=== PATIENT | female | born 1950 | race Two or more races ===

== ENCOUNTER 2023-06-16 08:45 | Inpatient (IN) | payer OTHER ==
[~2023-06-16] VITALS: Ht 152.4 cm; Wt 63.0 kg
[2023-06-16] MEDS ORDERED: VALSARTAN160 MG PO (12:16)
[2023-06-16] MEDS ORDERED: TOPROL XL50 M1 PO (12:16)
[2023-06-16] MEDS ORDERED: ROSUVASTATIN CA20 MG PO (12:17)
[2023-06-16] MEDS ORDERED: FOLIC ACID20 MG PO (12:17)
[2023-06-16] MEDS ORDERED: PLAVIX75 MG PO (12:17)
[2023-06-16] MEDS ORDERED: ZETIA10 MG PO (12:17)
[2023-06-16] MEDS ORDERED: PLAQUENIL PO (12:18)
[2023-06-22] MEDS ORDERED: CILOSTAZOL100 MG (10:29)
[2023-06-22] MEDS ORDERED: RISEDRONATE SO150 MG (10:29)
[2023-06-22] MEDS ORDERED: RESTORIL30 MG (10:29)
[2023-06-22] MEDS ORDERED: MELOXICAM15 MG (10:29)
[2023-06-22] MEDS ORDERED: METRONIDAZOLE/SODIUM CHLORIDE 500 MG/100 ML PIGGYBACK IV ONE ×4 (10:42→18:31)
[2023-06-22] MEDS ORDERED: CEFTRIAXONE SODIUM 2,000 MG VIAL ONE ×2 (10:42→12:18)
[2023-06-22] MEDS ORDERED: BUPIVACAINE HCL/PF 0.5% 30ML ML ONE (12:18)
[2023-06-22] MEDS ORDERED: LIDOCAINE HCL/EPINEPHRINE 20 ML VIAL IJ ONE ×2 (12:18→14:30)
[2023-06-22] MEDS ORDERED: CEFTRIAXONE SODIUM 2,000 MG VIAL IV ONE (14:30)
[2023-06-22] MEDS ORDERED: BUPIVACAINE HCL/PF 0.5% 5MG/ML VIAL IJ ONE (14:30)
[2023-06-22] MEDS ORDERED: DEXTROSE 50 % IN WATER 0.5 G/ML DISP.SYRIN IV PRN (16:00)
[2023-06-22] MEDS ORDERED: 0.9 % SODIUM CHLORIDE 1,000 ML IV SCH (16:00)
[2023-06-22] MEDS ORDERED: MORPHINE SULFATE 4 MG/ML CARTRIDGE IV PRN (16:00)
[2023-06-22] MEDS ORDERED: INSULIN LISPRO 1,000 UNIT/10 ML UNITS SUBCUTANEO SCH (16:00)
[2023-06-22] MEDS ORDERED: OxyCODONE HCL 5 MG TABLET (ROXICODONE) PO PRN (16:00)
[2023-06-22] MEDS ORDERED: ONDANSETRON HCL 2 MG/ML VIAL IV PRN (16:00)
[2023-06-22] MEDS ORDERED: METRONIDAZOLE/SODIUM CHLORIDE 500 MG/100 ML PIGGYBACK IV SCH (17:00)
[2023-06-22] MEDS ORDERED: POLYETHYLENE GLYCOL 3350 17 GM BLIST.PACK PO SCH (17:00)
[2023-06-22] MEDS ORDERED: HYOSCYAMINE SULFATE 0.125 MG TAB.SUBL SL SCH (17:00)
[2023-06-22] MEDS ORDERED: GABAPENTIN 300 MG CAPSULE PO SCH (17:00)
[2023-06-22] MEDS ORDERED: ONDANSETRON HCL 2 MG/ML VIAL ONE (17:16)
[2023-06-22 18:38] LABS: HEMATOCRIT 29.7 % (36.0-45.00); HEMOGLOBIN 10.1 g/dL (12.0-15.00); MEAN CELL VOLUME 96.2 fL (80.00-100.00); MEAN CORPUSCULAR HEMOGLOBIN 32.8 pg (27.00-32.0); MEAN CORPUSCULAR HGB CONC 34.1 g/dl (32.0-36.0); PLATELET COUNT 273 K/uL (150-450); RED BLOOD COUNT 3.08 M/uL (4.00-6.00)
[2023-06-22 19:52] LABS: ALBUMIN 3.4 gm/dL (3.4-5.0); CREATININE SERUM 0.68 mg/dL (0.55-1.02); GFR 85.05; MAGNESIUM 1.8 mg/dL (1.8-2.4); PHOSPHOROUS 3.4 mg/dL (2.5-4.9); POTASSIUM 3.23 mEq/L (3.5-5.1)
[2023-06-22] MEDS ORDERED: ACETAMINOPHEN 500 MG GEL..CAP PO SCH (20:00)
[2023-06-22] MEDS ORDERED: FAMOTIDINE/PF 20 MG/2 ML VIAL IV PUSH SCH (21:00)
[2023-06-23 06:57] LABS: HEMATOCRIT 28.9 % (36.0-45.00); MEAN CELL VOLUME 94.5 fL (80.00-100.00); MEAN CORPUSCULAR HEMOGLOBIN 32.6 pg (27.00-32.0); MEAN CORPUSCULAR HGB CONC 34.5 g/dl (32.0-36.0); PLATELET COUNT 277 K/uL (150-450); RED BLOOD COUNT 3.06 M/uL (4.00-6.00); RED CELL DISTRIBUTION WIDTH 13.1 % (11.5-14.5)
[2023-06-23 07:02] LABS: ALBUMIN 3.1 gm/dL (3.4-5.0); CALCIUM 9.3 mg/dL (8.5-10.1); CREATININE SERUM 0.67 mg/dL (0.55-1.02); GFR 86.52; MAGNESIUM 1.6 mg/dL (1.8-2.4); PHOSPHOROUS 3.1 mg/dL (2.5-4.9); POTASSIUM 3.56 mEq/L (3.5-5.1)
[2023-06-23] MEDS ORDERED: KETOROLAC TROMETHAMINE 30 MG VIAL IV ONE (08:15)
[2023-06-23] MEDS ORDERED: PATIENTS OWN MEDICATION (MEDICAMENTO EN PISO) PO SCH (09:00)
[2023-06-23] MEDS ORDERED: METOPROLOL SUCCINATE 50 MG TAB.SR.24H PO SCH (09:00)
[2023-06-23] MEDS ORDERED: ENOXAPARIN SODIUM 40 MG/0.4 ML SYRINGE SUBCUTANEO SCH (17:00)
[2023-06-24] MEDS ORDERED: CYCLOBENZAPRINE HCL 5 MG TABLET PO SCH (09:00)
[2023-06-24] MEDS ORDERED: ENOXAPARIN SODIUM 40 MG/0.4 ML SYRINGE SUBCUTANEO SCH (09:00)
[2023-06-25] MEDS ORDERED: PEPCID AC20 MG PO (08:35)
[2023-06-25] MEDS ORDERED: TRAM1TAB98 PO (08:35)
[2023-06-25] MEDS ORDERED: INTESTINEX680 M1 PO (08:36)
== END 2023-06-25 14:36 | disposition home or self-care (01) | DRG 331 ==
LOC: SURH 06-22 08:30 → O/R 06-22 09:38 → SURH 06-22 17:03
PROVIDERS: ADMIT Surgery; ATTEND Surgery
PROC: 0DBP4ZZ Excision of Rectum, Percutaneous Endoscopic Approach (ICD-10-PCS; 2023-06-22)
PROC: 0DBU4ZZ Excision of Omentum, Percutaneous Endoscopic Approach (ICD-10-PCS; 2023-06-22)
PROC: 0DJD8ZZ Inspection of Lower Intestinal Tract, Via Natural or Artificial Opening Endoscopic (ICD-10-PCS; 2023-06-22)
PROC: 0DTN4ZZ Resection of Sigmoid Colon, Percutaneous Endoscopic Approach (ICD-10-PCS; principal; 2023-06-22 08:30)
DX: K57.32 Diverticulitis of large intestine without perforation or abscess without bleeding (principal); R10.32 Left lower quadrant pain; N73.6 Female pelvic peritoneal adhesions (postinfective); N99.4 Postprocedural pelvic peritoneal adhesions; I10 Essential (primary) hypertension